=== PATIENT | female | born 1955 | race Caucasian/White ===

== ENCOUNTER → 2023-04-20 07:41 | Outpatient (REF) | payer MEDICARE, OTHER, SELFPAY | LOC: WDC 07:41 | PROVIDERS: ATTENDING PHYSICIAN Obstetrics & Gynecology Gynecology; FAMILY PHYSICIAN Family Medicine | DX: Z12.31 Encounter for screening mammogram for malignant neoplasm of breast (principal) | CPT/HCPCS: 77063; 77067 ==

== ENCOUNTER 2024-02-04 07:01 | Outpatient (RCR) | payer MEDICARE, OTHER, SELFPAY | END 2024-02-04 23:59 | disposition home or self-care (01) | LOC: RPT 07:01 | PROVIDERS: ATTENDING PHYSICIAN Nurse Practitioner Family | DX: N39.3 Stress incontinence (female) (male) (principal); N39.41 Urge incontinence; M62.89 Other specified disorders of muscle; R35.0 Frequency of micturition; Z73.6 Limitation of activities due to disability; R15.2 Fecal urgency | CPT/HCPCS: 97163; 97530 ==

== ENCOUNTER 2024-03-22 09:04 | Emergency (ER) | payer MEDICARE, OTHER, SELFPAY ==
[2024-03-22 09:14] VITALS: BP 146/85
--- NOTE | 2024-03-22 10:07 | ED.GENMED ---
History of Present Illness
<Moira Whittaker MD, Resident - Last Filed: 03/22/24 11:10>
General
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
Source: patient
Exam Limitations: none
Time Seen by Provider: 03/22/24 09:25
Nursing documentation reviewed up to this point in time: agreed with
History of Present Illness
History of Present Illness:
68yo F who presents from home to ED for being unable to remove pelvic floor support device. She recently began using OTC disposable pelvic floor support device that gets inserted and removed similar to a tampon; however, the removal string on this
device broke off. She attempted to remove it herself but was unable. 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 She has no other complaints-- no discharge, bleeding, vaginal/vulvar irritation or pain, urinary
symptoms. She has a history of urinary incontinence and vaginal/vulvar dryness for which she uses estradiol/topical betamethasone.
Past History
<Moira Whittaker MD, Resident - Last Filed: 03/22/24 11:10>
Past History
ED Past Medical History: Other (osteoporosis)
ED Past Surgical History: Other (bilateral breast reduction)
Patient has exhibited threatening behavior?: No
Social History
Tobacco: Non-smoker
Alcohol: None
Drug: None
Family History
Family History: Other (noncontributory)
Review of Systems
<Moira Whittaker MD, Resident - Last Filed: 03/22/24 11:10>
Review of Systems
Allergies reviewed?: Yes
Constitutional: Reports no symptoms
EENT: Reports no symptoms
Respiratory: Reports no symptoms
Cardiac: Reports no symptoms
ABD/GI: Reports no symptoms
: Reports incontinence and other (see HPI); Denies dysuria, flank pain, difficulty voiding, bleeding or discharge
Musculoskeletal: Reports no symptoms
Skin: Reports no symptoms
Neurological: Reports no symptoms
Endocrine: Reports no symptoms
Hematologic/Lymphatic: Reports no symptoms
Psychiatric: Reports no symptoms
Phy Exam
<Moira Whittaker MD, Resident - Last Filed: 03/22/24 11:10>
General Physical Exam
General Presentation: well appearing and no apparent distress
General age: appears stated age
General Skin: warm and dry
General Habitus: normal
General Mental: alert
General Hydration: appears well hydrated
Pulmonary Exam
Pulmonary Exam: no respiratory distress, no cough and other (nonlabored breathing)
Oxygen Status: room air
Gastrointestinal Exam
Gastrointestinal Exam: non tender, soft and non distended
Genitourinary Exam Female
Exam Female: no bleeding, no vaginal discharge and other (normal appearing postmenopausal external genitalia, no lesions )
Vaginal Exam: normal, foreign body and other (normal appearing vaginal mucosa, no obvious lesions though this was a limited exam-- vagina was not completely visualized, cervix not visualized)
Neurological Exam
Neurological Exam: alert, oriented x3, no motor deficits, no sensory deficits and speech normal
Psychiatric Exam
Psychiatric Exam: normal mood/affect
Course
<Moira Whittaker MD, Resident - Last Filed: 03/22/24 11:10>
Vital Signs
Initial and Last Documented VS:
Initial Vital Signs
Temp Pulse Resp BP Pulse Ox
98.1 F 72 16 146/85 99
03/22/24 09:14 03/22/24 09:14 03/22/24 09:14 03/22/24 09:14 03/22/24 09:14
Last Documented Vital Signs
Temp Pulse Resp BP Pulse Ox
98.1 F 70 16 144/81 99
03/22/24 09:14 03/22/24 10:19 03/22/24 10:00 03/22/24 10:19 03/22/24 10:19
<Dung Holloway MD - Last Filed: 03/22/24 10:33>
Vital Signs
Initial and Last Documented VS:
Initial Vital Signs
Temp Pulse Resp BP Pulse Ox
98.1 F 72 16 146/85 99
03/22/24 09:14 03/22/24 09:14 03/22/24 09:14 03/22/24 09:14 03/22/24 09:14
Last Documented Vital Signs
Temp Pulse Resp BP Pulse Ox
98.1 F 70 16 144/81 99
03/22/24 09:14 03/22/24 10:19 03/22/24 10:00 03/22/24 10:19 03/22/24 10:19
<Moira Whittaker MD, Resident - Last Filed: 03/22/24 11:10>
MDM/Problems Addressed
Differential Diagnosis Includes:
vaginal foreign body (pelvic floor support device)
MDM/Problems Addressed:
68yo F with no significant PMH who presents to ED for removal of vaginal foreign body
Offered waredresser for physical exam, patient declined.
Unable to remove device digitally. Speculum exam performed with adequate visualization of foreign body-- removed atraumatically with forceps. No vaginal discharge/bleeding. The pelvic floor support device appeared to be intact, patient in agreement.
Reviewed with patient that this was not complete pelvic exam, cervix not visualized.
Discussed follow up with nuclear power plant engineer, pelvic floor PT, and return to ED precautions.
Stable for discharge home. Patient understanding and in agreement with plan.
<Moira Whittaker MD, Resident - Last Filed: 03/22/24 11:10>
*Critical Care Note
Total Time (30-74mins, 75-104mins- exclusive of procedures): Not Applicable
ED Attending Note
<Moira Whittaker MD, Resident - Last Filed: 03/22/24 11:10>
-
Portions of this chart may have been created with voice recognition software.� Occasional wrong word or��sound alike� substitutions may have occurred due to the inherent limitations of voice recognition software.
<Dung Holloway MD - Last Filed: 03/22/24 10:33>
ED Attending Note
Patient seen and examined by attending physician: Yes
I performed a history and physical exam of patient and discussed management with resident, I reviewed resident's note and agree with documented findings and plan of care.: Yes
ED Attending Note:
Patient inserts pelvic floor device for bladder support. She 0.1 and last night. Sit disposable device. String fell out. Unable to remove this morning. No discharge pain fever or other complaints. Device was removed by our resident. Full
device was present and seen.
Patient is nontoxic in no distress. Standing getting dressed at this time. No respiratory distress. Warm and dry. Perfusing well. Grossly nonfocal nontender abdomen.
Routine instructions for foreign body vaginally and follow-up
Discharge Plan
Departure
Patient Disposition: Home (Routine Discharge)
Date of Disposition: 03/22/24
Time of Disposition: 10:14
Patient with high blood pressure during this ER visit?: Yes
Discharge Problem:
Vaginal foreign body
Instructions: BLOOD PRESSURE
Referrals:
Noah Reynolds MD [Family Provider] - As needed
()
Activity Restrictions/Additional Instructions:
You were seen in the Emergency Room for removal of the pelvic floor support device.
This was successfully removed. Please follow up with your nuclear power plant engineer and pelvic floor physical therapist for urinary symptoms/bladder support.
Please return to Emergency Room if you develop heavy vaginal bleeding, discharge, concern for infection, or new problems.
Interventions
Interventions:
*Risk Screen - Suicide Last Done: 03/22/24 09:14
*General Assessment Last Done: 03/22/24 09:29
*Neglect/Abuse Screening Last Done: 03/22/24 09:29
ED- Fall Risk Assessment Last Done: 03/22/24 10:22
*ED COVID-19 Vaccine History Last Done: 03/22/24 09:29
*Nursing Disposition Last Done: 03/22/24 10:22
ED-Female Genitourinary Assessment Last Done: 03/22/24 09:29
Discharge Date and Time
Discharge Date/Time: 03/22/24 10:27
Print Language: ALBANIAN
[2024-03-22 10:19] VITALS: BP 144/81
== END 2024-03-22 10:27 | disposition home or self-care (01) ==
LOC: EMR 09:04
PROVIDERS: EMERGENCY PHYSICIAN Emergency Medicine; FAMILY PHYSICIAN Family Medicine
DX: T19.2XXA Foreign body in vulva and vagina, initial encounter (principal); R32 Unspecified urinary incontinence; W44.8XXA Other foreign body entering into or through a natural orifice, initial encounter; R03.0 Elevated blood-pressure reading, without diagnosis of hypertension; M81.0 Age-related osteoporosis without current pathological fracture; Z88.0 Allergy status to penicillin; Z91.030 Bee allergy status
CPT/HCPCS: 99282

== ENCOUNTER 2024-03-24 18:00 | Outpatient (RCR) | payer MEDICARE, OTHER, SELFPAY | END 2024-03-24 23:59 | disposition home or self-care (01) | LOC: RPT 18:00 | PROVIDERS: ATTENDING PHYSICIAN Nurse Practitioner Family | DX: N39.3 Stress incontinence (female) (male) (principal); N39.41 Urge incontinence; M62.89 Other specified disorders of muscle; R35.0 Frequency of micturition; Z73.6 Limitation of activities due to disability; R15.2 Fecal urgency | CPT/HCPCS: 97014; 97110; 97112; 97140; 97530 ==

== ENCOUNTER → 2024-04-14 07:45 | Outpatient (REF) | payer MEDICARE, OTHER, SELFPAY | LOC: WDC 07:45 | PROVIDERS: ATTENDING PHYSICIAN Obstetrics & Gynecology Gynecology; FAMILY PHYSICIAN Family Medicine | DX: Z12.31 Encounter for screening mammogram for malignant neoplasm of breast (principal) | CPT/HCPCS: 77063; 77067 ==

== ENCOUNTER 2024-04-18 15:13 | Outpatient (RCR) | payer MEDICARE, OTHER, SELFPAY | END 2024-04-18 23:59 | disposition home or self-care (01) | LOC: RPT 15:13 | PROVIDERS: ATTENDING PHYSICIAN Nurse Practitioner Family | DX: N39.3 Stress incontinence (female) (male) (principal); N39.41 Urge incontinence; M62.89 Other specified disorders of muscle; R35.0 Frequency of micturition; Z73.6 Limitation of activities due to disability; R15.2 Fecal urgency; L90.0 Lichen sclerosus et atrophicus | CPT/HCPCS: 97014; 97112; 97140; 97530 ==

== ENCOUNTER → 2024-04-21 08:13 | Outpatient (REF) | payer MEDICARE, OTHER, SELFPAY | LOC: WDC 08:13 | PROVIDERS: ATTENDING PHYSICIAN Obstetrics & Gynecology Gynecology; FAMILY PHYSICIAN Family Medicine | DX: R92.8 Other abnormal and inconclusive findings on diagnostic imaging of breast (principal) | CPT/HCPCS: 76642 ==

== ENCOUNTER → 2024-05-04 07:49 | Outpatient (REF) | payer MEDICARE, OTHER, SELFPAY | LOC: RAD 07:49 | PROVIDERS: ATTENDING PHYSICIAN Obstetrics & Gynecology Gynecology; FAMILY PHYSICIAN Family Medicine | DX: M81.0 Age-related osteoporosis without current pathological fracture (principal) | CPT/HCPCS: 77080 ==

== ENCOUNTER 2024-05-12 15:00 | Outpatient (RCR) | payer MEDICARE, OTHER, SELFPAY | END 2024-05-12 23:59 | disposition home or self-care (01) | LOC: RPT 15:00 | PROVIDERS: ATTENDING PHYSICIAN Nurse Practitioner Family | DX: N39.3 Stress incontinence (female) (male) (principal); N39.41 Urge incontinence; M62.89 Other specified disorders of muscle; R35.0 Frequency of micturition; Z73.6 Limitation of activities due to disability; L90.0 Lichen sclerosus et atrophicus; R15.2 Fecal urgency | CPT/HCPCS: 97014; 97112; 97140; 97530 ==

== ENCOUNTER 2024-07-04 15:04 | Outpatient (RCR) | payer MEDICARE, OTHER, SELFPAY | END 2024-07-04 23:59 | disposition home or self-care (01) | LOC: RPT 15:04 | PROVIDERS: ATTENDING PHYSICIAN Nurse Practitioner Family | DX: N39.3 Stress incontinence (female) (male) (principal); N39.41 Urge incontinence; M62.89 Other specified disorders of muscle; R35.0 Frequency of micturition; Z73.6 Limitation of activities due to disability; L90.0 Lichen sclerosus et atrophicus; R15.2 Fecal urgency | CPT/HCPCS: 97110; 97530 ==

== ENCOUNTER 2024-08-29 08:53 | Outpatient (RCR) | payer MEDICARE, OTHER, SELFPAY | END 2024-08-29 23:59 | disposition home or self-care (01) | LOC: RPT 08:53 | PROVIDERS: ATTENDING PHYSICIAN Nurse Practitioner Family | DX: N39.3 Stress incontinence (female) (male) (principal); N39.41 Urge incontinence; M62.89 Other specified disorders of muscle; R35.0 Frequency of micturition; Z73.6 Limitation of activities due to disability; L90.0 Lichen sclerosus et atrophicus; R15.2 Fecal urgency | CPT/HCPCS: 97140; 97530 ==

== ENCOUNTER 2024-10-06 09:33 | Outpatient (RCR) | payer MEDICARE, OTHER, SELFPAY | END 2024-10-06 23:59 | disposition home or self-care (01) | LOC: RPT 09:33 | PROVIDERS: ATTENDING PHYSICIAN Nurse Practitioner Family | DX: N39.3 Stress incontinence (female) (male) (principal); N39.41 Urge incontinence; M62.89 Other specified disorders of muscle; R35.0 Frequency of micturition; Z73.6 Limitation of activities due to disability; L90.0 Lichen sclerosus et atrophicus; R15.2 Fecal urgency | CPT/HCPCS: 97530 ==